=== PATIENT | female | born 1995 | race African-American/Black ===

== ENCOUNTER 2025-09-05 10:01 | Emergency (ER) | payer OTHER ==
[~2025-09-05] VITALS: Ht 154.9 cm; Wt 72.5 kg
[2025-09-05 10:03] VITALS: BP 137/77; TEMP 98.9; O2SAT 100
== END 2025-09-05 10:45 | disposition home or self-care (01) ==
LOC: M ED 10:01
DX: J09.X2 Influenza due to identified novel influenza A virus with other respiratory manifestations (principal)